=== PATIENT | female | born 1960 | race Caucasian/White ===

== ENCOUNTER 2025-11-03 06:28 | Day surgery (SDC) | payer MEDICARE, OTHER, SELFPAY | END 2025-11-03 11:05 | disposition home or self-care (01) | LOC: GI 06:28 | PROVIDERS: ATTENDING PHYSICIAN Internal Medicine; FAMILY PHYSICIAN Internal Medicine | DX: R10.13 Epigastric pain (principal); K44.9 Diaphragmatic hernia without obstruction or gangrene; K29.60 Other gastritis without bleeding | CPT/HCPCS: 43239; 88305; 88342 ==